=== PATIENT | female | born 1985 | race Asian ===

== ENCOUNTER → 2018-01-28 | Outpatient (CLI) | payer OTHER ==
[2018-01-28 13:20] LABS: BASO % 0.5 %; BASO ABS # 0.02 K/uL (0-0.2); EOS % 3.2 %; EOS ABS # 0.13 K/uL (0-0.5); HEMOGLOBIN 13.1 g/dL (12.0-16.0); LYMPH % 38.4 %; LYMPH ABS # 1.58 K/uL (1.2-3.4); MEAN CELL VOLUME 95.8 fL (80-100); MEAN CORPUSCULAR HEMOGLOBIN 32.2 pg (25-34); MEAN CORPUSCULAR HGB CONC 33.6 g/dl (32-36); MEAN PLATELET VOLUME 10.3 fL (7.4-10.4); MONO ABS # 0.33 K/uL (0.11-0.59); NEUT % 49.9 %; NEUT ABS # 2.05 K/uL (1.4-6.5); PLATELET COUNT 219 K/uL (130-400); RED CELL DISTRIBUTION WIDTH CV 13.1 % (11.5-14.5); RED CELL DISTRIBUTION WIDTH SD 45.7 fL (36.4-46.3); WHITE BLOOD COUNT 4.11 K/uL (4.8-10.8)
[2018-01-28 15:08] LABS: BLOOD UREA NITROGEN 9 mg/dl (7-18); CALCIUM 8.6 mg/dl (8.5-10.1); CARBON DIOXIDE 29 mmol/L (21-32); CREATININE 0.64 mg/dl (0.60-1.20); GLUCOSE 82 mg/dl (70-99); SODIUM 140 mmol/L (136-145)
== END | disposition home or self-care (01) ==
LOC: C.LAB1850 12:03
PROVIDERS: ATTEND Nurse Practitioner Adult Health
DX: G51.0 Bell's palsy (principal); R29.810 Facial weakness; R53.83 Other fatigue

== ENCOUNTER → 2018-02-02 | Outpatient (CLI) | payer OTHER ==
--- NOTE | 2018-02-02 13:09 | DIAGNOSTIC IMAGING REPORT ---
MRI OF THE BRAIN WITHOUT IV CONTRAST CLINICAL HISTORY: Speech disturbance. Kitchen's palsy. Facial weakness. COMPARISON STUDY: No priors. TECHNIQUE: MRI of the brain was performed utilizing various T1 and T2-weighted sequences in the axial, sagittal, and coronal planes. IV contrast was not administered for this examination. FINDINGS: Brain parenchyma: The brain parenchyma is normal in appearance. There is no hemorrhage or mass effect. There is no restricted diffusion to suggest acute ischemia. Thomas-white matter differentiation is preserved. No extra-axial fluid collection is seen. The cerebellar tonsils are normal in configuration. Ventricles, sulci, and cisterns: Normal in configuration. Pituitary and sella: Unremarkable. Intracranial vasculature: Normal flow voids are maintained at the skull base. Orbits: The bony orbits are grossly intact. Orbital contents are normal in appearance. Sinuses and mastoids: Clear. Calvarium: Unremarkable. Cervical cord: Partially visualized cervical spinal cord is normal in morphology and signal intensity. IMPRESSION: No acute intracranial abnormality. Electronically signed by: Kaden Peterson M.D. 02/02/2018 1:08 PM Dictated Date/Time: 02/02/2018 1:06 PM
== END | disposition home or self-care (01) ==
LOC: C.MRIBC 12:28
PROVIDERS: ATTEND Nurse Practitioner Adult Health
DX: G51.0 Bell's palsy (principal); R29.810 Facial weakness; R47.9 Unspecified speech disturbances

== ENCOUNTER → 2018-02-12 | Outpatient (CLI) | payer OTHER ==
[2018-02-15 18:36] LABS: ANA SCREEN TC 249X NEGATIVE (NEGATIVE); ANTI-SS-A <1.0 NEG AI (<1.0 NEG); ANTI-SS-B <1.0 NEG AI (<1.0 NEG)
== END | disposition home or self-care (01) ==
LOC: C.LAB1850 11:33
PROVIDERS: ATTEND Psychiatry & Neurology Neurology
DX: G51.0 Bell's palsy (principal)

== ENCOUNTER → 2018-02-18 | Outpatient (CLI) | payer OTHER ==
[~2018-02-18] MED LIST: GADAVIST IV PRN
--- NOTE | 2018-02-18 08:57 | DIAGNOSTIC IMAGING REPORT ---
BRAIN COMBO FOR TRIGEMINAL CLINICAL HISTORY: 32 years-old Female presenting with G51.0 Kitchen's palsy Looking at left facial nerve for Kitchen's palsy. TECHNIQUE: Multisequence, multiplanar MR imaging of the brain was performed before and after the administration of intravenous contrast. IV contrast: 5.5 mL of Gadavist. COMPARISON: Noncontrast MR brain from 02/02/2018. FINDINGS: Ventricles and sulci normal in size. Brain parenchyma normal in appearance with preserved conteh-white differentiation. No mass effect or midline shift. No restricted diffusion to suggest acute ischemia. No hemorrhage. No extra-axial fluid collection. T2 skull base flow voids preserved. Abnormal enhancement of the left facial nerve within the internal auditory canal, geniculate ganglia, and labyrinthine segment. This is markedly asymmetric to the right. Bone marrow signal intensity within the calvarium within normal limits. IMPRESSION: 1. Diffusely abnormal enhancement of the left facial nerve, consistent with left Kitchen's palsy. Electronically signed by: Get Johnson M.D. 02/18/2018 8:56 AM Dictated Date/Time: 02/18/2018 8:29 AM
== END | disposition home or self-care (01) ==
LOC: C.MRIBC 07:34
PROVIDERS: ATTEND Psychiatry & Neurology Neurology
DX: G51.0 Bell's palsy (principal)

== ENCOUNTER → 2018-06-16 | Outpatient (CLI) | payer OTHER | END | disposition home or self-care (01) | LOC: C.LABSPEC 16:03 | PROVIDERS: ATTEND Nurse Practitioner Adult Health | DX: R39.15 Urgency of urination (principal) ==